=== PATIENT | female | born 1955 | race Caucasian/White ===

== ENCOUNTER 2018-08-14 14:32 | Emergency (ER) | payer OTHER ==
[2018-08-14 14:55] VITALS: BP 147/86
--- NOTE | 2018-08-14 15:11 | UC ---
Bite Injury/Animal HPI - HPI Summary HPI Summary: 63-year-old woman comes in with chief complaint of a tick bite to the left leg on the medial aspect of the knee. The tick had taken itself off already. She' s not sure how long it was in there. No rash feels well no fevers no chills. No myalgias or arthralgias. No history of Lyme disease. - History of Current Complaint Chief Complaint: UCSkin Stated Complaint: TICK BITE Time Seen by Provider: 08/14/18 14:52 Pain Intensity: 0 - Allergies/Home Medications Allergies/Adverse Reactions: Allergies Allergy/AdvReac Type Severity Reaction Status Date / Time penicillin G AdvReac yeast Verified 08/14/18 14:56 infections Home Medications: Home Medications Ascorbic Acid TAB* [Vitamin C TAB*] 500 mg PO DAILY 08/14/18 [History Confirmed 08/14/18] Biotin/Calcium Carbonate [Biotin 800 Mcg Tablet] 1 each PO DAILY 08/14/18 [ History Confirmed 08/14/18] Eprim/Linoleic/Gamolenic/Cranb [Evening [place] Oil & Cr] 1 cap PO BID [History Confirmed 08/14/18] Flaxseed Oil [[place]-3 Flaxseed Oil] 1,000 mg PO BID 08/14/18 [History Confirmed 08/14/18] Hylan G-F 20 [Synvisc] 16 mg IU ONCE 08/14/18 [History Confirmed 08/14/18] Ibuprofen TAB* [Advil TAB*] 200 mg PO Q6H PRN 08/14/18 [History Confirmed ] Magnesium Oxide [Magnesium 400 mg] 1 tab PO DAILY 08/14/18 [History Confirmed ] Meloxicam 7.5 mg PO DAILY 08/14/18 [History Confirmed 08/14/18] [place]-3 Fatty Acids (Nf) [Fish Oil (NF)] 1,000 mg PO BEDTIME 08/14/18 [History Confirmed 08/14/18] Prasterone (Dhea) [Pro Hormone Dhea Antioxid] 25 mg PO DAILY 08/14/18 [History Confirmed 08/14/18] Vit A/Vit C/Vit E/Zinc/Copper [SHADOW [facility]] 1 cap PO BID 08/14/18 [History Confirmed 08/14/18] PMH/Surg Hx/FS Hx/Imm Hx Previously Healthy: Yes - Surgical History Surgical History: Yes Surgery Procedure, Year, and Place: BUNION SURGERY LEFT FOOT. BROKEN LEFT ANKLE. HYSTERECTOMY - Family History Known Family History: Positive: Non-Contributory - Social History Alcohol Use: Daily Substance Use Type: None Smoking Status (MU): Former Smoker When Did the Patient Quit Smoking/Using Tobacco: 35 yrs ago Review of Systems All Other Systems Reviewed And Are Negative: Yes Constitutional: Positive: Negative Skin: Positive: Other - SEE HPI Eyes: Positive: Negative ENT: Positive: Negative Respiratory: Positive: Negative Cardiovascular: Positive: Negative Gastrointestinal: Positive: Negative Motor: Positive: Negative Neurovascular: Positive: Negative Musculoskeletal: Positive: Negative Neurological: Positive: Negative Psychological: Positive: Negative Is Patient Immunocompromised?: No Physical Exam Triage Information Reviewed: Yes Appearance: Well-Appearing, No Pain Distress, Well-Nourished Vital Signs: Initial Vital Signs Temp 97.7 F 08/14/18 14:49 Pulse 75 08/14/18 14:49 Resp 16 08/14/18 14:49 BP 147/86 08/14/18 14:49 Pulse Ox 100 08/14/18 14:49 Vital Signs Reviewed: Yes Eye Exam: Normal Eyes: Positive: Conjunctiva Clear Neck: Positive: Supple Respiratory: Positive: No respiratory distress Musculoskeletal Exam: Normal Musculoskeletal: Positive: Strength Intact, ROM Intact Neurological Exam: Normal Neurological: Positive: Alert, Muscle Tone Normal Psychological Exam: Normal Psychological: Positive: Age Appropriate Behavior Skin: Positive: Other - 3MM ERYTHEMA MEDIAL ASPECT OF LEFT KNEE. NO SWELLING. Bite Injury Course/Dx - Differential Dx/Diagnosis Provider Diagnosis: Tick bite of left lower leg Discharge - Sign-Out/Discharge Documenting (check all that apply): Patient Departure All imaging exams completed and their final reports reviewed: No Studies - Discharge Plan Condition: Stable Disposition: HOME Prescriptions: DOXYcycline CAP(*) [DOXYcycline 100MG CAP(*)] 200 mg PO ONCE #2 cap Patient Education Materials: Tick Bite (ED) Referrals: Magdiel Camp DO [Primary Care Provider] - Additional Instructions: FOLLOW UP WITH YOUR DOCTOR IF NOT COMPLETELY IMPROVED. GET REEVALUATED SOONER IF YOUR CONDITION WORSENS; RASH, FEVER, JOINT OR BODY ACHES, YOU FEEL ILL OR ANY QUESTIONS OR CONCERNS. - Billing Disposition and Condition Condition: STABLE Disposition: Home
== END 2018-08-14 15:17 | disposition home or self-care (01) ==
LOC: UCCORT 14:32
DX: S80.262A Insect bite (nonvenomous), left knee, initial encounter (principal); Z88.0 Allergy status to penicillin; Z87.891 Personal history of nicotine dependence; W57.XXXA Bitten or stung by nonvenomous insect and other nonvenomous arthropods, initial encounter; Y92.9 Unspecified place or not applicable
CPT/HCPCS: 99212; G0463

== ENCOUNTER 2019-04-11 08:41 | Observation (INO) | payer OTHER ==
--- NOTE | 2019-04-05 16:43 | HP ---
HISTORY AND PHYSICAL: DATE OF ADMISSION/SURGERY: 04/11/19 DATE OF OFFICE VISIT: 04/03/19 SURGEON: Jessica Mar MD.* (DICTATED BY MICHELLE MCKEON) PROCEDURE: Left total knee arthroplasty. CHIEF COMPLAINT: Left knee pain. HISTORY OF PRESENT ILLNESS: Ms. Garcia is a 63-year-old female with complaints of left knee pain secondary to end-stage osteoarthritis. She has failed conservative treatment and elected to proceed with a left total knee arthroplasty. PAST MEDICAL HISTORY: History of DVT. PAST SURGICAL HISTORY: Left ankle ORIF, removal of hardware from the left ankle , bunionectomy, and hysterectomy. CURRENT MEDICATIONS: 1. Meloxicam 7.5 mg daily. 2. Furosemide 20 mg daily. 3. Vitamin D. 4. Calcium. 5. Fish oil. 6. Flaxseed oil. 7. [place] oil. 8. Magnesium. 9. Biotin. 10. Osteo Bi-flex. 11. Vitamin C. 12. Tylenol as needed. ALLERGIES: No known drug allergies. FAMILY HISTORY: Diabetes, cancer, and coronary artery disease. SOCIAL HISTORY: She is a 63-year-old female. She lives alone. She does not smoke or use drugs. REVIEW OF SYSTEMS: A complete 14-point review of systems was reviewed with the patient and is positive for history of DVT. She denies history of hepatitis, HIV or anesthesia problems. PHYSICAL EXAMINATION GENERAL: She is well developed, well nourished, in no acute distress. VITAL SIGNS: She stands 67 inches tall, weighs 166 pounds. Her blood pressure is 110/60 and her heart rate is 94. HEENT: Normocephalic, atraumatic. NECK: Supple. No palpable lymph nodes. PULMONARY: The lungs are clear to auscultation bilaterally. CARDIO: Regular rate and rhythm. Strong S1 and S2. ABDOMEN: Soft, nontender, nondistended. NEUROLOGICAL: She is alert and oriented x3. MUSCULOSKELETAL: Left lower extremity: The skin is intact. There are no open wounds or abrasions. She has a moderate effusion of the left knee joint. There is tenderness along the medial and lateral joint line. She walks with an antalgic type gait. She has 2+ dorsalis pedis pulse. She is able to dorsiflex and plantarflex, and has intact sensation. ASSESSMENT AND PLAN: Ms. Garcia is a 63-year-old female with end-stage osteoarthritis of the left knee. She is failed conservative treatment and elected to proceed with the left total knee arthroplasty. The surgery is scheduled for 04/11/[address] Mar discussed the risks and benefits of the surgery at today's visit and all of her questions were answered. She will follow up with Dr. Mar 2 weeks after the surgery. No TXA will be used in this patient because of her history of a DVT. MICHELLE MCKEON [id number]/[facility] #: [id number] TANG
[~2019-04-11 08:41] MED LIST: Buffered Lidocaine 1% SYRIN* 1 ML/SYRINGE INTRADERM ONE; Lactated Ringers 1000 ML Bag* 1,000 ML IV SCH
--- OUTSIDE RECORDS SUMMARY | 2019-04-11 08:45 | XMS REPORT | Continuity of Care Document ---
:1955 External Reference #:[id number] Author Name Jessica Mar M.D. 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 Onset: 02/23/2018 Social History Type Date Description Comments Sex Unknown ETOH Use Occasionally consumes alcohol Tobacco Use Start: Unknown End: Patient is a former quit 34 yrs ago Unknown smoker Smoking Status Reviewed: 03/06/19 Patient is a former quit 34 yrs ago smoker Exercise Exercises regularly Type/Frequency Allergies, Adverse Reactions, Alerts Active Allergies Reaction Severity Comments Date Penicillin 08/30/2017 Medications Active Medications SIG Qnty Indications Ordering Provider Date Meloxicam take one tab Unknown 7.5mg Tablets once daily Furosemide 1 by mouth every Unknown 20mg Tablets day Vitamin D 1 by mouth every Unknown (Cholecalciferol) day 1000Unit Capsules Calcium 600 + D 1 by mouth twice Unknown a day [id number] Tablets Fish Oil 1 by mouth twice Unknown 500mg Capsules a day Flaxseed Oil 2 by mouth every Unknown 1000mg day Capsules Evening [place] Oil 1 by mouth every Unknown 500mg day Capsules Magnesium once a day Unknown 500mg Capsules Biotin 1 by mouth every Unknown 5mg Capsules day Osteo Bi-Flex Regular 2 by mouth every Unknown Strength day 250-200mg Tablets Vitamin C 1 by mouth every Unknown 500mg Capsules day Medications Administered in Office Medication SIG Qnty Indications Ordering Provider Date Synvisc Or Synvisc-One Jessica Mar M.D. 02/27/2019 Injection 1 MG Injection Depomedrol 40MG Julieth Chavira M.D. 12/28/2018 Injection Depomedrol 40MG Julieth Chavira M.D. 12/28/2018 Injection Synvisc Or Synvisc-One Matthias Garcia M.D. 08/30/2018 Injection 1 MG Injection Synvisc Or Synvisc-One Matthias Garcia M.D. 08/30/2018 Injection 1 MG Injection Depomedrol 40MG Julieth Chavira M.D. 08/17/2018 Injection Depomedrol 40MG Julieth Chavira M.D. 08/17/2018 Injection Depomedrol 40MG Julieth Chavira M.D. 04/13/2018 Injection Depomedrol 40MG Julieth Chavira M.D. 04/13/2018 Injection Synvisc Or Synvisc-One Matthias Garcia M.D. 03/07/2018 Injection 1 MG Injection Synvisc Or Synvisc-One Matthias Garcia M.D. 03/07/2018 Injection 1 MG Injection Synvisc Or Synvisc-One Matthias Garcia M.D. 09/06/2017 Injection 1 MG Injection Synvisc Or Synvisc-One Carter Bartholomew PA-C 09/06/2017 Injection 1 MG Injection Influenza,Unspecified Unknown 04/19/2017 Injection Immunizations CPT Code Status Date Vaccine Lot # [id number] Given 11/25/2017 Hepatitis A Vaccine Adult Dosage [id number] 54033 Given 05/28/2017 Tdap - Tetanus/Diptheria/Acellular Pertussis [id number] Given 05/28/2017 Typhoid Vaccine [id number] 23578 Given 05/28/2017 Hepatitis A Vaccine Adult Dosage [id number] Vital Signs Date Vital Result Comment 03/06/2019 1:03pm Height 67 inches 5'7" Weight 169.00 lb BP Systolic 120 mmHg BP Diastolic 74 mmHg Respiratory Rate 14 /min Body Temperature 97.9 F Pain Level 3 BMI (Body Mass Index) 26.5 kg/m2 02/27/2019 1:35pm Height 67 inches 5'7" Weight 169.25 lb Heart Rate 68 /min BP Systolic 122 mmHg BP Diastolic 70 mmHg Respiratory Rate 12 /min Pain Level 2 BMI (Body Mass Index) 26.5 kg/m2 Results Description No Information Available Procedures Date Code Description Status 03/06/2019 Inject/Drain Joint/Bursa Major W/O US Completed 02/27/2019 Inject/Drain Joint/Bursa Major W/O US Completed 12/28/2018 Injection, Carpal Tunnel Completed Medical Devices Description No Information Available Encounters Type Date Location Provider Dx Diagnosis Office Visit 01/30/2019 [facility] Jessica Zaid, M25.562 Pain in left knee 1:30p at [facility] M25.561 Pain in right knee M25.462 Effusion, left knee M25.461 Effusion, right knee M17.0 Bilateral primary osteoarthritis of knee Assessments Date Code Description Provider 03/06/2019 M25.561 Pain in right knee Jessica Mar M.D. 03/06/2019 M25.461 Effusion, right knee Jessicakarlene Mar M.D. 03/06/2019 M17.0 Bilateral primary osteoarthritis of knee Jessica Saurabh Mar 02/27/2019 M25.562 Pain in left knee Jessicakarlene Mar M.D. 02/27/2019 M25.462 Effusion, left knee Jessica Mar M.D. 02/27/2019 M25.561 Pain in right knee Jessica Mar M.D. 02/27/2019 M25.461 Effusion, right knee Jessicakarlene Mar M.D. 02/27/2019 M17.0 Bilateral primary osteoarthritis of knee Jessica Saurabh Mar 02/03/2019 M25.562 Pain in left knee Jessicakarlene Mar M.D. 02/03/2019 M25.462 Effusion, left knee Jessica Mar M.D. 02/03/2019 M17.0 Bilateral primary osteoarthritis of knee Jessica Saurabh Mar 02/01/2019 M25.562 Pain in left knee Jessica Mar M.D. 02/01/2019 M25.462 Effusion, left knee Jessica Mar M.D. 02/01/2019 M17.0 Bilateral primary osteoarthritis of knee Jessica Mar M.D. 01/30/2019 M25.562 Pain in left knee Jessica Mar M.D. 01/30/2019 M25.561 Pain in right knee Jessica Mar M.D. 01/30/2019 M25.462 Effusion, left knee Jessica Mar M.D. 01/30/2019 M25.461 Effusion, right knee Jessica Mar M.D. 01/30/2019 M17.0 Bilateral primary osteoarthritis of knee Jessica Mar M.D. 12/28/2018 G56.03 Carpal tunnel syndrome, bilateral upper Julieth Chavira M.D. limbs Plan of Treatment Future Appointment(s):03/15/2019 1:30 pm - Jessica Mar M.D. at [facility] at Vgixgb6104/03/2019 1:00 pm - Jessica Mar M.D. at [facility] at Kzbbfr8004/11/2019 9:30 am - Jessica Mar M.D. at [facility] at Kdcgie9303/06/2019 - Jessica Mar M.D.M25.561 Pain in right kneeFollow up:Follow up: 1 weekM25.461 Effusion, right kneeM17.0 Bilateral primary osteoarthritis of knee Functional Status Description No Information Available Mental Status Description No Information Available Referrals Description No Information Available
--- OUTSIDE RECORDS SUMMARY | 2019-04-11 08:45 | XMS REPORT | Continuity of Care Document ---
:1955 External Reference #:[id number] Author Name Natividad Valadez PA (transmitted by agent of provider Magdiel Camp) Address [address] [place] [address] Care Team Providers Name Role Phone HCP given Care Team Information Nip Wrapper Unavailable Jessica Mar MD - Orthopaedic Care Team Information Nip Wrapper Surgery Problems Active Problems Provider Date Peripheral venous insufficiency Natividad Valadez PA Onset: 06/30/2017 Degenerative joint disease involving multiple Natividad Valadez PA Onset: 2017 joints Migraine with typical aura Natividad Valadez PA Onset: 06/30/2017 Adjustment disorder with mixed emotional features Natividad Valadez PA Onset: Bilateral carpal tunnel syndrome Natividad Valadez PA Onset: 06/30/2017 Sleep apnea Natividad Valadez PA Onset: 06/30/2017 Localized, primary osteoarthritis Natividad Valadez PA Onset: 03/22/2019 Social History Type Date Description Comments Sex Unknown Tobacco Use Start: Unknown Denies Cigarette Use ETOH Use Consumes 2 glasses of wine per day Recreational Drug Use Has Used Illegal Drugs remote Hx marijuana In The Past use Tobacco Use Start: Unknown Non Smoker Smoking Status Reviewed: 03/22/19 Non Smoker Exercise Type/Frequency Exercises regularly Sun Exposure Uses sunscreen Seat Belt/Car Seat Seat Belt Use - Yes Guns in Home No Smoke Alarms Yes smoke alarm Allergies, Adverse Reactions, Alerts Active Allergies Reaction Severity Comments Date Penicillin yeast infection 06/03/2017 Medications Active Medications SIG Qnty Indications Ordering Date Provider Tylenol PM 1 nightly Unknown 03/21/2019 Phenazopyridine HCL 1-2 twice a day x 12tabs N39.0 Clarence 08/30/2018 100mg 3 days for Saurabh Akers Tablets urinary discomfort Meloxicam Take One Tablet 60tabs Silcoff, 06/30/2017 7.5mg Tablets By Mouth Twice A Saurabh Akers Day Fish Oil daily Unknown 06/02/2017 Flax Seed Oil daily Unknown 06/02/2017 Evening [place] Oil daily Unknown 06/02/2017 Calcium daily Unknown 06/02/2017 Vitamin D daily Unknown 06/02/2017 Biotin daily Unknown 06/02/2017 Magnesium daily Unknown 06/02/2017 Vision Vitamins daily Unknown 06/02/2017 Tablets Osteo Biflex daily Unknown 06/02/2017 Furosemide take 1/2-1 tablet 30tabs Silcoff, 20mg Tablets by mouth as Saurabh Akers needed for swelling Medications Administered in Office Medication SIG Qnty Indications Ordering Provider Date SC/Im Injections Unknown 05/28/2017 Injection Immunizations CPT Code Status Date Vaccine Lot # [id number] Given 02/23/2019 Shingrix Zoster (Shingles) Vaccine (HZV) [id number] Recomb,Subnit,Adjuvanted 83870 Given 02/23/2019 Influenza Virus Vaccine, Quadrivalent, Split, [id number] Preservative Free 86913 Given 11/25/2017 Hep A, Adult 18882 Given 05/28/2017 Adacel or Boostrix, TDaP 74307 Given 05/28/2017 Hep A, Adult 53865 Given 04/20/2017 Influenza Virus Vaccine, Quadrivalent, Split, Preservative Free Vital Signs Date Vital Result Comment 03/22/2019 12:49pm BP Systolic 124 mmHg BP Diastolic 72 mmHg Height 66.75 inches 5'6.75" Weight 166.00 lb BMI (Body Mass Index) 26.2 kg/m2 09/02/2018 2:02pm BP Systolic 124 mmHg BP Diastolic 66 mmHg Results Description No Information Available Procedures Date Code Description Status 03/22/2019 95653 Electrocardiogram Complete Completed 03/07/2019 57184650 Mammogram Completed 07/17/2013 65371969 Colonoscopy Completed Medical Devices Description No Information Available Encounters Type Date Location Provider Dx Diagnosis Office Visit 03/22/2019 Main Office Natividad Valadez PA Z01.818 Encounter for other 1:00p preprocedural examination M17.0 Bilateral primary osteoarthritis of knee G56.03 Carpal tunnel syndrome, bilateral upper limbs Z68.26 Body mass index (BMI) 26.0-26.9, adult Assessments Date Code Description Provider 03/22/2019 Z01.818 Encounter for other preprocedural examination Natividad Valadez PA 03/22/2019 M17.0 Bilateral primary osteoarthritis of knee Natividad Valadez PA 03/22/2019 G56.03 Carpal tunnel syndrome, bilateral upper limbs Natividad Valadez PA 03/22/2019 Z68.26 Body mass index (BMI) 26.0-26.9, adult Natividad Valadez PA 02/23/2019 Z23 Encounter for immunization Nurse's Schedule Plan of Treatment Future Appointment(s):08/17/2019 10:05 am - Natividad Valadez PA at Main Tfbnab21 - Jd LovettR35.0 Frequency of micturitionFollow up:get blood work done that includes A1CR30.0 PgkhemzN62.83 Other fatigueComments:I declined to do a Lyme test today as there has not been a recent bite and not presenting clearly that likely has Lyme dz. did order TSH due to fatigue.triage to Natividad of this apptR21 Rash and other nonspecific skin eruptionComments:discussed DDx w pt:appears to be contact dermatitis. Suggested possible poison jarvis as pt has already been working outside a bit. has had for a week and really not changed. ++itchy. discussed that can get from animals and work gloves indirectly. advised to be careful with thisFollow up:OTC Hydrocort bbjdsR79.1 Encounter for screening for diabetes mellitus Functional Status Description No Information Available Mental Status Description No Information Available Referrals Description No Information Available
--- OUTSIDE RECORDS SUMMARY | 2019-04-11 08:45 | XMS REPORT | Continuity of Care Document ---
:1955 External Reference #:[id number] Author Name Jessica Mar M.D. 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 Onset: 02/23/2018 Social History Type Date Description Comments Sex Unknown ETOH Use Occasionally consumes alcohol Tobacco Use Start: Unknown End: Patient is a former quit 34 yrs ago Unknown smoker Smoking Status Reviewed: 02/27/19 Patient is a former quit 34 yrs [...] 1 by mouth twice Unknown a day [id number]-Xhal Tablets Fish Oil 1 by mouth twice Unknown 500mg Capsules a day Flaxseed Oil 2 by mouth every Unknown 1000mg day Capsules Evening [place] Oil 1 by mouth every Unknown 500mg day Capsules Magnesium once a day Unknown 500mg Capsules Biotin 1 by mouth every Unknown 5mg Capsules day Osteo Bi-Flex Regular 2 by mouth every Unknown Strength day 250-200mg Tablets Vitamin C 1 by mouth every Unknown 500mg Capsules day Medications Administered in Office Medication SIG Qnty Indications Ordering Provider Date Depomedrol 40MG Julieth Chavira M.D. 12/28/2018 Injection [...] CPT Code Status Date Vaccine Lot # [id number] Given 11/25/2017 Hepatitis A Vaccine Adult Dosage [id number] 76924 Given 05/28/2017 Tdap - Tetanus/Diptheria/Acellular Pertussis [id number] 40663 Given 05/28/2017 Typhoid Vaccine [id number] 63998 Given 05/28/2017 Hepatitis A Vaccine Adult Dosage [id number] Vital Signs Date Vital Result Comment 02/27/2019 1:35pm Height 67 inches 5'7" Weight 169.25 lb Heart Rate 68 /min BP Systolic 122 mmHg BP Diastolic 70 mmHg Respiratory Rate 12 /min Pain Level 2 BMI (Body Mass Index) 26.5 kg/m2 01/30/2019 1:14pm Height 67 inches 5'7" Weight 173.00 lb Heart Rate 88 /min BP Systolic 124 mmHg BP Diastolic 82 mmHg Respiratory Rate 18 /min Body Temperature 98.2 F Pain Level 6 BMI (Body Mass Index) 27.1 kg/m2 Results Description No Information Available Procedures Date Code Description Status 02/27/2019 Inject/Drain Joint/Bursa Major W/O US Completed 12/28/2018 Injection, Carpal Tunnel Completed 08/30/2018 Inject/Drain Joint/Bursa Major W/O US Completed Medical Devices Description No Information Available Encounters Type Date Location Provider Dx Diagnosis Office Visit 01/30/2019 [facility] Jessicachay Mar, M25.562 Pain in left knee 1:30p at [place] M.DOusmane M25.561 Pain in right knee M25.462 Effusion, left knee M25.461 Effusion, right knee M17.0 Bilateral primary osteoarthritis of knee Assessments Date Code Description Provider 02/27/2019 M25.562 Pain in left knee Jessica Zaid M.DOusmane 02/27/2019 M25.462 Effusion, left knee Jessica Zaid M.DOusmane 02/27/2019 M25.561 Pain in right knee Jessica Zaid, M.DOusmane 02/27/2019 M25.461 Effusion, right knee Jessica Zaid, M.DOusmane 02/27/2019 M17.0 Bilateral primary osteoarthritis of knee Jessica Bibiana Mar.DOusmane 02/03/2019 M25.562 Pain in left knee Jessica Zaid, M.D. 02/03/2019 M25.462 Effusion, left knee Jessica Zaid M.DOusmane 02/03/2019 M17.0 Bilateral primary osteoarthritis of knee Jessica Zaid, M.DOusmane 02/01/2019 M25.562 Pain in left knee Jessica Zaid, M.D. 02/01/2019 M25.462 Effusion, left knee Jessica Zaid, M.DOusmane 02/01/2019 M17.0 Bilateral primary osteoarthritis of knee Jessica Zaid M.DOusmane 01/30/2019 M25.562 Pain in left knee Jessica Zaid, M.DOusmane 01/30/2019 M25.561 Pain in right knee Jessica Zaid M.DOusmane 01/30/2019 M25.462 Effusion, left knee Jessica Zaid, M.DOusmane 01/30/2019 M25.461 Effusion, right knee Jessica Mar M.D. 01/30/2019 M17.0 Bilateral primary osteoarthritis of knee Jessica Mar M.D. 12/28/2018 G56.03 Carpal tunnel syndrome, bilateral upper Julieth Chavira M.D. limbs 08/30/2018 M17.11 Unilateral primary osteoarthritis, right Matthias Garcia M.D. knee 08/30/2018 M17.12 Unilateral primary osteoarthritis, left knee Matthias Garcia M.D. Plan of Treatment Future Appointment(s):04/03/2019 1:00 pm - Jessica Mar M.D. at [facility] at Fftgvg7203/13/2019 1:15 pm - Jessica Mar M.D. at [facility] at Qqiidw8003/06/2019 1:00 pm - Jessica Mar M.D. at [facility] at Wbdgzk4704/11/2019 9:30 am - Jessica Mar M.D. at [facility] at Wzabuk5602/27/2019 - Jessica Mar M.D.M25.562 Pain in left kneeFollow up:Follow up: 1 weekM25.462 Effusion, left kneeM25.561 Pain in right kneeM25.461 Effusion, right kneeM17.0 Bilateral primary osteoarthritis of knee Functional Status Description No Information Available Mental Status Description No Information Available Referrals Description No Information Available
--- OUTSIDE RECORDS SUMMARY | 2019-04-11 08:45 | XMS REPORT | Continuity of Care Document ---
:1955 External Reference #:[id number] Author Name Jessica Mar M.D. 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 Onset: 02/23/2018 Social History Type Date Description Comments Sex Unknown ETOH Use Occasionally consumes alcohol Tobacco Use Start: Unknown End: Patient is a former quit 34 yrs ago Unknown smoker Smoking Status Reviewed: 03/15/19 Patient is a former quit 34 yrs [...] 1 by mouth twice Unknown a day [id number] Tablets Fish Oil 1 by mouth twice Unknown 500mg Capsules a day Flaxseed Oil 2 by mouth every Unknown 1000mg day Capsules Evening [place] Oil 1 by mouth every Unknown 500mg [...] Date Synvisc Or Synvisc-One Jessica Mar M.D. 03/06/2019 Injection 1 MG Injection Synvisc Or Synvisc-One Jessica Mar M.D. 02/27/2019 [...] Injection 1 MG Injection Synvisc Or Synvisc-One Mtathias Garcia M.D. 09/06/2017 Injection 1 MG Injection Synvisc Or Synvisc-One Carter Bartholomew PA-C 09/06/2017 Injection 1 MG Injection Influenza,Unspecified Unknown 04/19/2017 Injection Immunizations CPT Code Status Date Vaccine Lot # [id number] Given 11/25/2017 Hepatitis A Vaccine Adult Dosage [id number] 01905 Given 05/28/2017 Tdap - Tetanus/Diptheria/Acellular Pertussis [id number] 62219 Given 05/28/2017 Typhoid Vaccine [id number] 10430 Given 05/28/2017 Hepatitis A Vaccine Adult Dosage [id number] Vital Signs Date Vital Result Comment 03/15/2019 1:49pm Height 67 inches 5'7" Weight 167.50 lb Heart Rate 72 /min BP Systolic 122 mmHg BP Diastolic 84 mmHg Respiratory Rate 16 /min Body Temperature 97.8 F Pain Level 0 BMI (Body Mass Index) 26.2 kg/m2 03/06/2019 1:03pm Height 67 inches 5'7" Weight 169.00 lb BP Systolic 120 mmHg BP Diastolic 74 mmHg Respiratory Rate 14 /min Body Temperature 97.9 F Pain Level 3 BMI (Body Mass Index) 26.5 kg/m2 Results Description No Information Available Procedures Date Code Description Status 03/15/2019 Inject/Drain Joint/Bursa Major W/O US Completed 03/06/2019 Inject/Drain Joint/Bursa Major W/O US Completed 02/27/2019 Inject/Drain Joint/Bursa Major W/O US Completed 12/28/2018 Injection, Carpal Tunnel Completed Medical Devices Description No Information Available Encounters Type Date Location Provider Dx Diagnosis Office Visit 01/30/2019 [facility] Jessica Mar, M25.562 Pain in left knee 1:30p at [facility] M25.561 Pain in right knee M25.462 Effusion, left knee M25.461 Effusion, right knee M17.0 Bilateral primary osteoarthritis of knee Assessments Date Code Description Provider 03/15/2019 M25.561 Pain in right knee Jessica Mar M.D. 03/15/2019 M25.461 Effusion, right knee Jessica Mar M.D. 03/15/2019 M17.0 Bilateral primary osteoarthritis of knee Jessica Mar M.D. 03/06/2019 M25.561 Pain in right knee Jessica Mar M.D. 03/06/2019 M25.461 Effusion, right knee Jessica Mar M.D. 03/06/2019 M17.0 Bilateral primary osteoarthritis of knee Jessicachay Mar M.D. 02/27/2019 M25.562 Pain in left knee Jessica Mar M.D. 02/27/2019 M25.462 Effusion, left knee Jessica Mar M.D. 02/27/2019 M25.561 Pain in right knee Jessica Mar M.D. 02/27/2019 M25.461 Effusion, right knee Jessica Mar M.D. 02/27/2019 M17.0 Bilateral primary osteoarthritis of knee Jessica Zaid, M.D. 02/03/2019 M25.562 Pain in left knee Jessica Zaid, M.D. 02/03/2019 M25.462 Effusion, left knee Jessica Zaid, M.D. 02/03/2019 M17.0 Bilateral primary osteoarthritis of knee Jessica Zaid, M.D. 02/01/2019 M25.562 Pain in left knee Jessica Zaid, M.D. 02/01/2019 M25.462 Effusion, left knee Jessica Zaid, M.D. 02/01/2019 M17.0 Bilateral primary osteoarthritis of knee Jessica Zaid, M.D. 01/30/2019 M25.562 Pain in left knee Jessica Zaid, M.D. 01/30/2019 M25.561 Pain in right knee Jessica Zaid, M.D. 01/30/2019 M25.462 Effusion, left knee Jessica Zaid, M.D. 01/30/2019 M25.461 Effusion, right knee Jessica Zaid, M.D. 01/30/2019 M17.0 Bilateral primary osteoarthritis of knee Jessica Zaid, M.DOusmane 12/28/2018 G56.03 Carpal tunnel syndrome, bilateral upper Julieth Chavira M.D. limbs Plan of Treatment Future Appointment(s):04/11/2019 9:30 am - Carter Bartholomew PA-C at [facility] at Khkzwq0004/11/2019 9:30 am - MICHELLE Benson at [facility] at Vwadfm1004/03/2019 1:00 pm - Jessica Mar M.D. at [facility] at Cujssz5604/11/2019 9:30 am - Jessica Mar M.D. at [facility] at Nvdunk0803/15/2019 - Jessica Mar M.D.M25.561 Pain in right kneeFollow up:Follow up: As shqheyW99.461 Effusion, right kneeM17.0 Bilateral primary osteoarthritis of knee Functional Status Description No Information Available Mental Status Description No Information Available Referrals Description No Information Available
--- OUTSIDE RECORDS SUMMARY | 2019-04-11 08:45 | XMS REPORT | Continuity of Care Document ---
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 Surgery Problems Active Problems Provider Date Peripheral [...] 1-2 twice a day x 12tabs N39.0 Silcoff, 08/30/2018 100mg 3 days for Saurabh Akers Tablets urinary discomfort Meloxicam Take One Tablet 60tabs Silcoff, 06/30/2017 7.5mg Tablets By Mouth Twice A Saurabh Akers Day Fish Oil daily Unknown 06/02/2017 Flax Seed Oil daily Unknown 06/02/2017 Evening [place] Oil daily Unknown 06/02/2017 Calcium daily Unknown [...] CPT Code Status Date Vaccine Lot # [id number] Given 02/23/2019 Shingrix Zoster (Shingles) Vaccine (HZV) [id number] Recomb,Subnit,Adjuvanted 82368 Given 02/23/2019 Influenza Virus Vaccine, Quadrivalent, Split, [id number] Preservative Free [id number] Given 11/25/2017 Hep A, Adult 33335 Given 05/28/2017 Adacel or Boostrix, TDaP 68617 Given 05/28/2017 Hep A, Adult 87475 Given 04/20/2017 Influenza Virus Vaccine, Quadrivalent, Split, Preservative Free Vital Signs Date Vital Result Comment 03/22/2019 12:49pm BP Systolic 124 mmHg BP Diastolic 72 mmHg Height 66.75 inches 5'6.75" Weight 166.00 lb BMI (Body Mass Index) 26.2 kg/m2 09/02/2018 2:02pm BP Systolic 124 mmHg BP Diastolic 66 mmHg Results Description No Information Available Procedures Date Code Description Status 03/22/2019 67892 Electrocardiogram Complete Completed 03/07/2019 40520845 Mammogram Completed 07/17/2013 77875343 Colonoscopy Completed Medical Devices Description No Information [...] am - Natividad Valadez PA [facility] - Natividad Valadez, PAZ01.818 Encounter for other preprocedural examinationComments:Patient is at average risk for surgery, and is cleared for planned procedure without additional cardiac testing based on ACC/AHA guidelines (>4 METs), provided labs are within acceptable range.Patient has no prior anesthetic related complications.She was advised to inform the surgeon of any acute illness which may occur between now and surgical date. This consultation has been faxed to the referring physician.Studies ordered in Office :EKG - Sinus rhythm. Vent rate 69, Jodi 178, QRSd 110, QT/QTc 394/413, P-R-T axes 6/8/34.Labs - CMP, CBC, INR, UA drawn in office today. Results pending, will be copied to surgeon.M17.0 Bilateral primary osteoarthritis of kneeComments :Surgery to be done as above.G56.03 Carpal tunnel syndrome, bilateral upper limbsComments:Seeing ortho, getting injections for now, surgery planned for 2019.Z68.26 Body mass index (BMI) 26.0-26.9, adult Functional Status Description No Information Available Mental Status Description No Information Available Referrals Description No Information Available
--- OUTSIDE RECORDS SUMMARY | 2019-04-11 08:45 | XMS REPORT | Continuity of Care Document ---
:1955 External Reference #:[id number] Author Name Jessica Mar M.D. (transmitted by agent of provider Maggie Segura) Address [address] [place] [address] [place] [address] Care Team Providers Name Role Phone Oswald Lima MD - Internal Care Team Information Cio Medicine Problems Active Problems Provider Date Localized, primary osteoarthritis Matthias Garcia M.D. Onset: 02/23/2018 Social History Type Date Description Comments Sex Unknown ETOH Use Occasionally consumes alcohol Tobacco Use Start: Unknown End: Patient is a former quit 34 yrs ago Unknown smoker Smoking Status Reviewed: 04/03/19 Patient is a former quit 34 yrs ago smoker Exercise Exercises regularly Type/Frequency Allergies, Adverse Reactions, Alerts Active Allergies Reaction Severity Comments Date Penicillin 08/30/2017 Medications Active Medications SIG Qnty Indications Ordering Date Provider Adjust Bath/Shower 67" 166lbs dx: s/p 1units Jessica Mar, 04/03/2019 Seat left knee M.D. Misc replacement Walker standard walker dx: 1unterence Mar, 04/03/2019 Misc s.p knee M.D. replacement 67" 166lbs Meloxicam take one tab once Unknown 7.5mg daily Tablets Furosemide 1 by mouth every Unknown 20mg day Tablets Vitamin D 1 by mouth every Unknown (Cholecalciferol) day 1000Unit Capsules Calcium 600 + D 1 by mouth twice a Unknown day [id number] Tablets Fish Oil 1 by mouth twice a Unknown 500mg day Capsules Flaxseed Oil 2 by mouth every Unknown 1000mg day Capsules Evening [place] Oil 1 by mouth every Unknown day 500mg Capsules Magnesium once a day Unknown 500mg Capsules Biotin 1 by mouth every Unknown 5mg Capsules day Osteo Bi-Flex 2 by mouth every Unknown Regular Strength day 250-200mg Tablets Vitamin C 1 by mouth every Unknown 500mg day Capsules Medications Administered in Office Medication SIG Qnty Indications Ordering Provider Date Synvisc Or Synvisc-One Jessica Mar M.D. 03/15/2019 Injection 1 MG Injection Synvisc Or Synvisc-One Jessica Mar M.D. 03/06/2019 [...] CPT Code Status Date Vaccine Lot # [id number] Given 11/25/2017 Hepatitis A Vaccine Adult Dosage [id number] 98202 Given 05/28/2017 Tdap - Tetanus/Diptheria/Acellular Pertussis [id number] 75455 Given 05/28/2017 Typhoid Vaccine [id number] 90082 Given 05/28/2017 Hepatitis A Vaccine Adult Dosage [id number] Vital Signs Date Vital Result Comment 04/03/2019 12:53pm Height 67 inches 5'7" Weight 166.00 lb Heart Rate 94 /min BP Systolic 110 mmHg BP Diastolic 60 mmHg Body Temperature 98.0 F Pain Level 0 BMI (Body Mass Index) 26.0 kg/m2 03/15/2019 1:49pm Height 67 inches 5'7" Weight 167.50 lb Heart Rate 72 /min BP Systolic 122 mmHg BP Diastolic 84 mmHg Respiratory Rate 16 /min Body Temperature 97.8 F Pain Level 0 BMI (Body Mass Index) 26.2 kg/m2 Results Test Acquired Date Facility Test Result H/L Range Note CBC Auto 03/22/2019 [facility] White Blood 5.7 10^3/uL Normal 3.5-10.[address] [place] [address] [phone] Red Blood Count 4.31 10^6/uL Normal 3.70-4.87 Hemoglobin 13.9 g/dL Normal 12.0-16.0 Hematocrit 41 % Normal 35-47 Mean Corpuscular Volume 95 fL Normal 80-97 Mean Corpuscular Hemoglobin 32 pg High 27-31 Mean Corpuscular HGB Conc 34 g/dL Normal 31-36 Red Cell Distribution Width 14 % Normal 10-15 Platelet Count 275 10^3/uL Normal 150-450 Mean Platelet Volume 8.4 fL Normal 7.4-10.4 Abs Neutrophils 3.5 10^3/uL Normal 1.5-7.7 Abs Lymphocytes 1.6 10^3/uL Normal 1.0-4.8 Abs Monocytes 0.4 10^3/uL Normal 0-0.8 Abs Eosinophils 0.1 10^3/uL Normal 0-0.6 Abs Basophils 0.1 10^3/uL Normal 0-0.2 Abs Nucleated RBC 0.0 10^3/uL Granulocyte % 61.4 % Lymphocyte % 28.3 % Monocyte % 7.4 % Eosinophil % 1.9 % Basophil % 1.0 % Nucleated Red Blood Cells % 0.1 Comp Metabolic 03/22/2019 [facility] Sodium 139 mmol/L Normal 135-145 Panel [address] [place] [address] [phone] Potassium 4.2 mmol/L Normal 3.5-5.0 Chloride 102 mmol/L Normal 101-111 Co2 Carbon Dioxide 33 mmol/L High 22-32 Anion Gap 4 mmol/L Normal 2-11 Glucose 79 mg/dL Normal 70-100 Blood Urea Nitrogen 14 mg/dL Normal 6-24 Creatinine 0.56 mg/dL Normal 0.51-0.95 BUN/Creatinine Ratio 25.0 High 8-20 Calcium 9.8 mg/dL Normal 8.6-10.3 Total Protein 6.6 g/dL Normal 6.4-8.9 Albumin 4.2 g/dL Normal 3.2-5.2 Globulin 2.4 g/dL Normal 2-4 Albumin/Globulin Ratio 1.8 Normal 1-3 Total Bilirubin 0.50 mg/dL Normal 0.2-1.0 Alkaline Phosphatase 49 U/L Normal 34-104 Alt 16 U/L Normal 7-52 Ast 19 U/L Normal 13-39 Egfr Non- 110.1 >60 Egfr 133.2 >60 1 Inr/Protime 03/22/2019 [facility] Inr 1.20 High 0.82-1.09 [address] [place] [address] [phone] Urinalysis Profile 03/22/2019 [facility] Urine Color Straw [address] [place] [address] [phone] Urine Appearance Clear Urine Specific [place] 1.006 Low 1.010-1.030 Urine pH 6.0 Normal 5-9 Urine Urobilinogen Negative Negative Urine Ketones Negative Negative Urine Protein Negative Negative Urine Leukocytes Negative Negative Urine Blood Negative Negative Urine Nitrite Negative Negative Urine Bilirubin Negative Negative Urine Glucose Negative Negative 1 Because ethnic data is not always readily available, this report includes an eGFR for both -Americans and non- Americans. The National Kidney Disease Education Program (NKDEP) does not endorse the use of the MDRD equation for patients that are not between the ages of 18 and 70, are , have extremes of body size, muscle mass, or nutritional status, or are non- or non-. According to the National Kidney Foundation, irrespective of diagnosis, the stage of the disease is based on the level of kidney function: Stage Description GFR(mL/min/1.73 m(2)) 1 Kidney damage with normal or decreased GFR 90 2 Kidney damage with mild decrease in GFR 60-89 3 Moderate decrease in GFR 30-59 4 Severe decrease in GFR 15-29 5 Kidney failure <15 (or dialysis) 2 Standard intensity warfarin therapeutic range: 2.0-3.0 High intensity warfarin therapeutic range: 2.5-3.5 Procedures Date Code Description Status 03/15/2019 Inject/Drain Joint/Bursa Major W/O US Completed 03/06/2019 Inject/Drain Joint/Bursa Major W/O US Completed 02/27/2019 Inject/Drain Joint/Bursa Major W/O US Completed 12/28/2018 Injection, Carpal Tunnel Completed Medical Devices Description No Information Available Encounters Type Date Location Provider Dx Diagnosis Office Visit 01/30/2019 [facility] Jessica Mar, M25.562 [place] in [place] M25.561 Pain in right knee M25.462 Effusion, left knee M25.461 Effusion, right knee M17.0 Bilateral primary osteoarthritis of knee Assessments Date Code Description Provider 03/15/2019 M25.561 Pain in right knee Jessica Mar M.D. 03/15/2019 M25.461 Effusion, right knee Jessica Mar M.D. 03/15/2019 M17.11 Unilateral primary osteoarthritis, right Jessica Mar M.D. knee 03/06/2019 M25.561 Pain in right knee Jessica Mar M.D. 03/06/2019 M25.461 Effusion, right knee Jessica Mar M.D. 03/06/2019 M17.0 Bilateral primary osteoarthritis of knee Jessica Mar M.D. 02/27/2019 M25.562 Pain in left knee Jessica Mar M.D. 02/27/2019 M25.462 Effusion, left knee Jessica Mar M.D. 02/27/2019 M25.561 Pain in right knee Jessica Mar M.D. 02/27/2019 M25.461 Effusion, right knee Luz Marina LuzD. 02/27/2019 M17.0 Bilateral primary osteoarthritis of knee [...] primary osteoarthritis of knee Jessica Zaid, M.D. 12/28/2018 G56.03 Carpal tunnel syndrome, bilateral upper Julieth Chavira M.D. limbs Plan of Treatment Future Appointment(s):04/24/2019 2:45 pm - Jessica Mar M.D. at [facility]04/11/2019 9:30 am - Carter Bartholomew PA-C at [facility]04/11/2019 9:30 am - [facility] am - [facility] Functional Status Description No Information Available Mental Status Description No Information Available Referrals Description No Information Available
[2019-04-11] MEDS ORDERED: Buffered Lidocaine 1% SYRIN* 1 ML/SYRINGE INTRADERM ONE (09:32)
[2019-04-11] MEDS ORDERED: ceFAZolin 2 GM in NS PREMIX(*) 2 GM/100 ML BAG IVPB ONE (09:32)
[2019-04-11] MEDS ORDERED: fentaNYL* 50 MCG/ML 2 ML VIAL (100 MCG VIAL) ONE ×2 (09:33→12:02)
[2019-04-11] MEDS ORDERED: Midazolam* 1 MG/ML 5 ML VIAL (5 MG) ONE (09:34)
[2019-04-11 10:11] LABS: INR 1.13 (0.82-1.09)
[2019-04-11] MEDS ORDERED: ROPIVACAINE 5 MG/ML 30 ML BTL (0.5%) ONE ×2 (10:28→10:45)
[2019-04-11] MEDS ORDERED: Ondansetron INJ* 2 MG/ML VIAL ONE (11:25)
[2019-04-11] MEDS ORDERED: Propofol* 10 MG/ML 20 ML BTL ONE (11:25)
[2019-04-11] MEDS ORDERED: Lidocaine 2% PF * 5 ML VIAL ONE (11:25)
[2019-04-11] MEDS ORDERED: Dexamethasone IV* 4 MG/ML 1 ML (4 MG) ONE (11:25)
[2019-04-11] MEDS ORDERED: EPHEDrine (Pressors)* 50 MG/ML VIAL ONE (11:33)
[2019-04-11] MEDS ORDERED: Morphine INJ* 2 MG/ML 1 ML SYRINGE (TWO MG - NEW SYRINGE VERSION) IV PRN (14:31)
[2019-04-11] MEDS ORDERED: oxyCODONE TAB* 5 MG TAB PO PRN (14:31)
[2019-04-11] MEDS ORDERED: Ondansetron ODT TAB* 4 MG PO PRN (14:31)
[2019-04-11] MEDS ORDERED: Magnesium Hydroxide LIQ* 30 ML UDC PO PRN (14:31)
[2019-04-11] MEDS ORDERED: diPHENhydraMINE IV* 50 MG/ML 1 ml VIAL (BENADRYL) IV PRN (14:31)
[2019-04-11] MEDS ORDERED: Ondansetron INJ* 2 MG/ML VIAL IV PRN (14:31)
[2019-04-11] MEDS ORDERED: traZODone TAB* 50 MG TAB PO PRN (14:31)
[2019-04-11] MEDS ORDERED: Polyethylene Glycol 3350* 17 GM PACKET PO PRN (14:31)
[2019-04-11] MEDS ORDERED: traMADol TAB* 50 MG PO PRN (14:31)
[2019-04-11] MEDS ORDERED: Cyclobenzaprine TAB* 10 MG PO PRN (14:31)
[2019-04-11] MEDS ORDERED: diPHENhydraMINE PO* 25 MG PO PRN (14:31)
[2019-04-11] MEDS ORDERED: Furosemide TAB* 20 MG PO PRN (14:34)
[2019-04-11] MEDS ORDERED: oxyCODONE/Acetamin 5/325 MG* TAB ONE (15:10)
[2019-04-11] MEDS: oxyCODONE/Acetamin 5/325 MG* TAB PO PRN ×2 (15:12→22:54)
[2019-04-11] MEDS: Lactated Ringers 1000 ML Bag* 1,000 ML IV SCH (15:43)
[2019-04-11] MEDS ORDERED: Naloxone* 0.4 MG/ML 1 ML VIAL IV PRN (15:52)
[2019-04-11] MEDS ORDERED: Acetaminophen TAB* 325 MG PO PRN (15:52)
[2019-04-11] MEDS ORDERED: oxyCODONE/Acetamin 5/325 MG* TAB PO PRN (15:52)
[2019-04-11] MEDS ORDERED: HYDROmorphone INJ1* 1 MG/ML SYRINGE IV PRN (15:52)
[2019-04-11] MEDS: Magnesium Hydroxide LIQ* 30 ML UDC PO SCH (20:17)
[2019-04-11] MEDS: Docusate CAP* 100 MG PO SCH (20:17)
[2019-04-11] MEDS: ceFAZolin 1 GM ADVAN(*) 1 GM in NS 0.9% 50 ML* 50 ML IVPB SCH (20:18)
--- NOTE | 2019-04-11 20:23 | OP ---
Operative Report - Blank - Operative Report Date of Operation: 04/11/19 Note: MARTINEZ DEL TORO 1955 Date of Surgery: 04/11/19 Jessica Mar MD Catering Administrative Assistant: Patrick MARTINEZ did help throughout the procedure with preparation of the knee, wound retraction, manipulation of the knee, and wound closure. Anesthesiologist: Dr. Schilling Anesthesia Type: Spinal Preoperative Diagnosis: Left severe degenerative osteoarthritis of the knee Postoperative Diagnosis: As above Procedure Performed: Left Total Knee Arthroplasty Tourniquet time: 66 minutes Complications: None Specimen: Bone and cartilage from the left knee joint sent to pathology. Hardware Used: Cemented [employer]hew total knee hardware was used - For the femur a size 6 left oxinium narrow legion posterior stabilized femoral component , for the tibia a size 4 left unique II tibial baseplate, for the insert a size 9mm high flex 3-4 posterior stabilized articular polyethylene insert, and for the patella a size 32 3-peg all poly patella. The [employer] Robotic Navigation system was used. Brief History/Indication: MARTINEZ DEL TORO was known in clinic and had a history of severe left knee pain and swelling. She failed conservative treatment with anti-inflammatories, pain pills, intra-articular injections and physical therapy. She elected to undergo left total knee arthroplasty due to continued pain and decreased quality of life. Radiographs showed severe end stage osteoarthritis of the knee with bone on bone contact. Informed consent was obtained from the patient. She understood the risks of surgery included but were not limited to: bleeding, infection, damage to nearby structures, intraoperative fracture, nerve palsy, failure of the hardware, early loosening, knee stiffness or loss of motion, anesthesia complications, stroke, heart attack , blood clot and . She chose the Navio robotic system and accepted the additional pin site risks. She wished to proceed. Intra-Operative Findings: Intraoperatively the patient was noted to have severe loss of cartilage in all 3 compartments of the knee. Description of the Procedure: MARTINEZ DEL TORO was identified in the preanesthesia unit. Her left knee was marked as the correct operative side. Informed consent was signed and placed in the chart. The patient was taken to the operating room and placed under anesthesia without complication. A underwood catheter was placed. A tourniquet was placed on the left thigh. The left lower extremity was prepped and draped in the usual sterile fashion. Preoperative time-out was made to correctly identify the patient, side and site. Appropriate intraoperative antibiotics were given within one hour of incision. Tourniquet was inflated. A midline incision was made and carried sharply down to the extensor mechanism. A new 10 blade was used to make a standard medial parapatellar arthrotomy. The patella was subluxed laterally. Electrocautery was used to dissect soft tissue off the superomedial tibia to the midsagittal plane. The knee was flexed up. The anterior horn of the lateral meniscus and the ACL/PCL were sharply incised. The checkpoint screws and femoral/tibial pins were carefully placed. The arrays were attached and the knee anatomy was mapped using the Navio navigation system. The hardware size and placement was determined using the Navio system. The robotic kendy was used to make the distal femoral cut. The size 6 multi-cutting jig was pinned on the distal femur. The oscillating saw was used to make the appropriate 4 chamfer cuts. Next the PCL was completely released. The extramedullary tibial cutting guide was pinned on the proximal tibia and the Navio angulation guide was used to choose the cutting angles. The oscillating saw was used to make the proximal tibial cut perpendicular to the mechanical axis of the tibia. The bone was carefully removed. The knee was brought out into full extension. The spacer block was placed and had excellent fit with the knee in full extension. The medial and lateral ligaments were well balanced. The flexion and extension gaps were well balanced. The knee was flexed up. Lamina segregator was placed both medially and laterally. Any remaining meniscus was removed with electrocautery. Curved osteotome was used to remove any posterior osteophytes. The tibial tray and drop judson were placed and confirmed a satisfactory tibial cut. The size 6 left femoral trial was impacted onto the distal femur. This trial had excellent fit and stability. The box for the posterior stabilized implant was prepared using a box cut osteotome and a reamer. Next a tibial tray trial and 9 mm insert trial was placed. The knee was taken through a range of motion and had full extension to 130 degrees of flexion. Patellofemoral tracking was satisfactory. Final Navio checkpoints were collected and the two screws/four pins were removed without complication. The patella was inverted and sized to a size 32. Three peg holes were drilled through the size 32 drill guide. The trial patella was placed and the knee was taken through a range of motion. There was satisfactory patellofemoral tracking. All trials were removed. The tibia was subluxed anteriorly and sized to a size 4. The proximal tibial was prepared with a size 4 keel punch. All bony cut surfaces were irrigated with sterile saline and dried. Final implants were cemented into place starting with the tibia, followed by the femur, and last the patella. A 9 mm insert trial was placed and the knee was brought into full extension. Tourniquet was turned down and the knee was copiously irrigated with sterile saline. Electrocautery was used to obtain meticulous hemostasis. Once the cement had fully cured, the insert trial was removed. Any excess cement was removed from around the hardware and capsule. Final insert chosen was a 9 mm posterior stabilized Unique II articular insert size 3-4. Stability of the insert was checked and noted to be stable. The extensor mechanism was closed using number 1 vicryls. The rest of the incision was closed in a layered fashion using 0 and 2-0 vicryls. The skin was closed using 3-0 nylon suture. Sterile xeroform, 4x4s and webril were used to cover the incision. Harshil wrap and cold pack were used to cover the dressings. The patients anesthesia was reversed without difficulty. She was taken to the PACU in stable condition. Intended weight-bearing will be as tolerated.
[2019-04-11] MEDS: Acetaminophen TAB* 325 MG PO SCH (22:55)
[2019-04-12] MEDS: Lactated Ringers 1000 ML Bag* 1,000 ML IV SCH (02:13)
[2019-04-12] MEDS: oxyCODONE/Acetamin 5/325 MG* TAB PO PRN ×6 (03:49→20:47)
[2019-04-12] MEDS: ceFAZolin 1 GM ADVAN(*) 1 GM in NS 0.9% 50 ML* 50 ML IVPB SCH ×2 (03:49→12:02)
[2019-04-12 05:45] LABS: Hematocrit 34 % (35-47); Hemoglobin 11.6 g/dL (12.0-16.0); Mean Platelet Volume 8.1 fL (7.4-10.4); Platelet Count 222 10^3/uL (150-450)
[2019-04-12 05:59] LABS: BUN/Creatinine Ratio 21.7 (8-20); Calcium 8.7 mg/dL (8.6-10.3); EGFR African American 167.1 (>60); EGFR Non-African American 138.1 (>60); Potassium 3.8 mmol/L (3.5-5.0)
[2019-04-12] MEDS: Acetaminophen TAB* 325 MG PO SCH ×3 (06:14→22:56)
[2019-04-12] MEDS: Docusate CAP* 100 MG PO SCH ×2 (08:40→20:48)
[2019-04-12] MEDS: Magnesium Hydroxide LIQ* 30 ML UDC PO SCH ×2 (08:40→20:49)
[2019-04-12] MEDS: Vitamin THERAPEUTIC TAB PO SCH (08:40)
[2019-04-12] MEDS: Apixaban* 2.5 MG TAB PO SCH ×2 (08:40→20:48)
--- NOTE | 2019-04-12 09:31 | PN ---
Progress Note - Progress Note Date of Service: 04/12/19 SOAP: Subjective: []Pt seen and examined at bedside. SHe feels well without CP, SOB, dizziness, nausea. She desires to stay in the hospital until tomorrow due to feeling uncomfortable going home. SHe would like to go to [facility] if able, but her second choice is home with VNS. Objective: []Gen: NAD, appears well LLE: Left knee dressing CDI, thigh soft, DF/PF intact, DP2+, sensation intact to light touch distally. Calves supple and nontender without erythema, edema or palpable cords Assessment: []POD 1 sp LTK Plan: []WBAT PT/OT Eliquis 2.5 mg po BID Plan DC tomorrow Has done quite well with PT, unlikely [facility] will offer a bed but will put in a consult as well as ask CM to set up VNS Repeat Na tomorrow Vital Signs Temp 97.3 F 04/12/19 07:54 Pulse 90 04/12/19 07:54 Resp 18 04/12/19 08:38 BP 114/65 04/12/19 07:54 Pulse Ox 98 04/12/19 07:54 Intake & Output 04/11/19 04/12/19 04/12/19 18:59 06:59 18:59 Intake Total 2100 2555 600 Output Total 2600 350 Balance 2100 -45 250 Weight 167 lb 3.2 oz Intake: IV Fluids 2100 1035 ABX - CEFAZOLIN 55 LR 2100 980 Oral 1520 600 Output: Urine 350 Morales 2600 Other: # Bowel Movements 0 Laboratory Last Values Hgb 11.6 g/dL (12.0-16.0) L 04/12/19 05:14 Hct 34 % (35-47) L 04/12/19 05:14 Plt Count 222 10^3/uL (150-450) 04/12/19 05:14 MPV 8.1 fL (7.4-10.4) 04/12/19 05:14 INR (Anticoag Therapy) 1.13 (0.82-1.09) H 04/11/19 09:44 Sodium 134 mmol/L (135-145) L 04/12/19 05:14 Potassium 3.8 mmol/L (3.5-5.0) 04/12/19 05:14 Chloride 101 mmol/L (101-111) 04/12/19 05:14 Carbon Dioxide 29 mmol/L (22-32) 04/12/19 05:14 Anion Gap 4 mmol/L (2-11) 04/12/19 05:14 BUN 10 mg/dL (6-24) 04/12/19 05:14 Creatinine 0.46 mg/dL (0.51-0.95) L 04/12/19 05:14 Est GFR ( Amer) 167.1 (>60) 04/12/19 05:14 Est GFR (Non-Af Amer) 138.1 (>60) 04/12/19 05:14 BUN/Creatinine Ratio 21.7 (8-20) H 04/12/19 05:14 Glucose 115 mg/dL (70-100) H 04/12/19 05:14 Calcium 8.7 mg/dL (8.6-10.3) 04/12/19 05:14
[2019-04-13] MEDS: Acetaminophen TAB* 325 MG PO SCH ×2 (04:35→13:44)
[2019-04-13 05:34] LABS: Hematocrit 32 % (35-47); Hemoglobin 10.9 g/dL (12.0-16.0); Mean Platelet Volume 7.6 fL (7.4-10.4); Platelet Count 219 10^3/uL (150-450)
[2019-04-13] MEDS: oxyCODONE/Acetamin 5/325 MG* TAB PO PRN ×3 (07:19→14:58)
[2019-04-13] MEDS: Apixaban* 2.5 MG TAB PO SCH (08:44)
[2019-04-13] MEDS: Vitamin THERAPEUTIC TAB PO SCH (08:44)
[2019-04-13] MEDS: Docusate CAP* 100 MG PO SCH (08:44)
[2019-04-13] MEDS: Magnesium Hydroxide LIQ* 30 ML UDC PO SCH (08:46)
--- NOTE | 2019-04-13 09:20 | PN ---
Progress Note - Progress Note Date of Service: 04/13/19 SOAP: Subjective: Pt. is alert, nad, pain controlled. Objective: Vital Signs: Temp Pulse Resp BP Pulse Ox 97.7 F 91 16 135/71 98 04/13/19 07:50 04/13/19 07:50 04/13/19 08:00 04/13/19 07:50 04/13/19 08:00 Laboratory Results - last 24 hr 04/13/19 04/13/19 05:26 05:26 Hgb 10.9 L Hct 32 L Plt Count 219 MPV 7.6 Sodium 138 LLE - dressing changed, inc c/d/i. min swelling. distally nvi. 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 eliquis bid incision looks good. plan d/c to home today with vns
--- NOTE | 2019-04-13 10:38 | DS ---
Orthopedic Discharge Summary - Discharge Summary Date of Admission:04/11/19 Date of Discharge: 04/13/19 Date of Surgery: 04/11/19 Attending Orthopedic Provider: Jessica Mar Pre-operative Diagnosis: Left knee osteoarthritis Operative Procedure: Left Total knee replacement Disposition of Patient: Discharge to home Condition of Patient: Stable History: MARTINEZ DEL TORO is a 63 year old F with years of increasingly severe left knee pain. Patient has failed conservative management and has elected to undergo a Left total knee replacement Hospital Course: MARTINEZ was admitted to [facility] on 04/11/19. Patient underwent a Left total knee replacement without complication followed by a brief recovery in PACU and transfer to the Short Stay Surgical Unit in stable condition. Our hospitalist service, physical therapy and occupational therapy also participated in this patients care. Post-op day 1: patient was alert and in no acute distress. Dressing was clean, dry and intact. Operative extremity dorsiflexion and plantarflexion intact, sensation intact to light touch distally, DP2+. Post-op day two: dressing was changed, incision was clean , dry and intact. Patient was deemed to be medically and orthopedically stable for discharge. Physical therapy goals were met. She was discharged to home in a stable condition. Home Medications Medication Instructions Recorded Confirmed Type Ascorbic Acid TAB* [Vitamin C 500 mg PO DAILY 08/14/18 04/03/19 History TAB*] Biotin/Calcium Carbonate [Biotin 1 each PO DAILY 08/14/18 04/03/19 History 800 Mcg Tablet] DOXYcycline CAP(*) [DOXYcycline 200 mg PO ONCE #2 cap 08/14/18 04/03/19 Rx 100MG CAP(*)] Eprim/Linoleic/Gamolenic/Cranb 1 cap PO DAILY 08/14/18 04/03/19 History [Evening [place] Oil Softgel] Flaxseed Oil [Supai-3 Flaxseed Oil] 1,000 mg PO BID 08/14/18 04/03/19 History Ibuprofen TAB* [Advil TAB*] 200 mg PO Q6H PRN 08/14/18 04/11/19 History Magnesium Oxide [Magnesium] 1 tab PO DAILY 08/14/18 04/03/19 History Meloxicam 7.5 mg PO QAM 08/14/18 04/11/19 History Supai-3 Fatty Acids (Nf) [Fish Oil 1,000 mg PO BEDTIME 08/14/18 04/03/19 History (NF)] Prasterone (Dhea) [Dhea] 25 mg PO DAILY 08/14/18 04/11/19 History Vit A/Vit C/Vit E/Zinc/Copper 1 cap PO BID 08/14/18 04/03/19 History [Vision Formula Softgel] Calcium Carbonate/Vitamin D3 1 tab PO DAILY 04/03/19 04/03/19 History [Calcium 500-Vit D3 600 Tablet] Furosemide TAB* [Lasix TAB*] 20 mg PO DAILY PRN 04/03/19 04/11/19 History Glucosamine/D3/Boswellia Sabine 1 each PO DAILY 04/03/19 04/03/19 History [Osteo Bi-Flex Tablet] Acetaminophen [Tylenol Extra 500 mg PO PRN 04/11/19 History Strength] Acetaminophen TAB* [Tylenol TAB*] 975 mg PO Q8HR tab 04/12/19 Rx Apixaban* [Eliquis*] 2.5 mg PO BID #60 tab 04/12/19 Rx Docusate CAP* [Colace Cap*] 100 mg PO BID PRN #90 cap 04/12/19 Rx oxyCODONE/Acetamin 5/325 MG* 1 tab PO Q4H PRN tab 04/12/19 Rx [Percocet 5/325 TAB*] oxyCODONE/Acetamin 5/325 MG* 2 tab PO Q4H PRN #70 tab MDD 10 04/12/19 Rx [Percocet 5/325 TAB*] Discharge Instructions following Orthopedic Surgery: Activity: * Weight Bearing as tolerated * Continue physical therapy and occupational therapy exercises as shown Hip replacements: Continue Hip Precautions- do not cross legs or bend greater than 90 degrees/squat Wound care: * OK to shower on post-op day 3, no bathing, swimming, or submerging wound. * Use gentle soap, pat dry. Cover with gauze, IRAIDA wrap or tape. * Visiting home nurse to do wound checks. Call Orthopedic office for: * Increased drainage * Redness * Increased pain * Fever Go to ER with shortness of breath or chest pain. Diet: * Regular diet * Increase fluids and fiber to prevent constipation. * Continue to use stool softeners, call office if no bowel motion within 48 hours. Medications See Home Medication List in your packet for medications that you should take after discharge. DVT Prophylaxis: Coumadin Dosing: * Please note that you have been given 2 mg tablets. * Visiting home nurse to draw blood work for INR on Wednesday and . * You will be provided with dose instructions on Mondays and . * If you do not receive dosing instruction on dosing, please call our office right away. Please shirley dosing instructions on your calendar as they are provided to you. * Dosing: INR blood draw for further dosing instructions. Call orthopedic office if you do not receive dosing instructions. Eliquis Dosin.5 mg, 1 tab every 12 hours x 30 days Pain Control: Percocet Dosin/325 mg 1-2 tabs by mouth every 4-6 hours as needed for pain. Maximum of 10 tabs per day. Celebrex Dosin mg twice a day Please note that Percocet contains Tylenol (acetaminophen). Maximum daily dose of Tylenol is 4000 mg from all sources. Antibiotics are required prior to any dental work. FOLLOW UP: Follow up with Dr. Mar within 10-14 days, call for appointment Please call our office with any questions or concerns ([phone])
[2019-04-13 11:42] VITALS: BP 129/68
[2019-04-13] MEDS ORDERED: Bisacodyl SUPP* 10 MG SUPP PR PRN (14:31)
== END 2019-04-13 15:30 | disposition home or self-care (01) ==
LOC: INTOOBSV 08:41 → AA 08:41 → SSU 14:31
PROVIDERS: ADMIT Orthopaedic Surgery Adult Reconstructive Orthopaedic Surgery; ATTEND Orthopaedic Surgery Adult Reconstructive Orthopaedic Surgery
DX: M17.12 Unilateral primary osteoarthritis, left knee (principal); G56.03 Carpal tunnel syndrome, bilateral upper limbs; Z68.26 Body mass index [BMI] 26.0-26.9, adult; Z79.899 Other long term (current) drug therapy
CPT/HCPCS: 36415; 80048; 84300; 85014; 85018; 85049; 85610; A9270-GY; G0378; J0690; J1100; J2250; J2405; J2704; J2795; J3010